=== PATIENT | male | born 2000 | race Caucasian/White ===

== ENCOUNTER 2023-01-25 18:06 | Emergency (ER) | payer BC ==
[2023-01-25] MEDS ORDERED: Lidocaine 1% 5 ML VIAL INJECT ONE (18:13)
== END 2023-01-25 18:35 | disposition home or self-care (01) ==
LOC: LB.ED 18:06
DX: S50.851A Superficial foreign body of right forearm, initial encounter (principal); W45.8XXA Other foreign body or object entering through skin, initial encounter
CPT/HCPCS: 99282